=== PATIENT | female | born 1985 ===

== ENCOUNTER 2019-12-09 08:32 | Day surgery (SDC) | payer BC ==
[~2019-12-09 08:32] MED LIST: Acetaminophen TAB* 325 MG PO ONE; Buffered Lidocaine 1% SYRIN* 1 ML/SYRINGE INTRADERM ONE; Famotidine IV* 10 MG/ML 2 ML (20 mg) IV ONE; Lactated Ringers 1000 ML Bag* 1,000 ML IV SCH
[2019-12-09] MEDS ORDERED: Acetaminophen TAB* 325 MG ONE (08:35)
[2019-12-09] MEDS ORDERED: ceFAZolin 2 GM PREMIX in ORs 2 GM/50 ML BAG ONE (08:36)
[2019-12-09] MEDS ORDERED: Buffered Lidocaine 1% SYRIN* 1 ML/SYRINGE INTRADERM ONE (08:36)
[2019-12-09] MEDS ORDERED: Famotidine IV* 10 MG/ML 2 ML (20 mg) ONE (08:36)
[2019-12-09] MEDS ORDERED: fentaNYL* 50 MCG/ML 2 ML VIAL (100 MCG VIAL) ONE (09:18)
[2019-12-09] MEDS ORDERED: Midazolam* 1 MG/ML 5 ML VIAL (5 MG) ONE (09:18)
[2019-12-09] MEDS ORDERED: Lidocaine 2% PF * 5 ML VIAL ONE (09:37)
[2019-12-09] MEDS ORDERED: Propofol* 10 MG/ML 20 ML BTL ONE (09:38)
[2019-12-09] MEDS ORDERED: Ondansetron INJ* 2 MG/ML VIAL ONE ×2 (09:38→11:23)
[2019-12-09] MEDS ORDERED: Ondansetron INJ* 2 MG/ML VIAL IV PRN (09:45)
[2019-12-09] MEDS ORDERED: HYDROcodone/ACETAMIN 5-325 MG* 1 TAB PO PRN (09:45)
[2019-12-09] MEDS ORDERED: fentaNYL* 50 MCG/ML 2 ML VIAL (100 MCG VIAL) IV PRN (09:45)
[2019-12-09] MEDS ORDERED: Naloxone* 0.4 MG/ML 1 ML VIAL IV PRN (09:45)
[2019-12-09] MEDS ORDERED: DiMENhydriNATE IV* 50 MG/ML VIAL IV PUSH PRN (09:45)
--- NOTE | 2019-12-09 10:24 | OP ---
Operative Report - Blank - Operative Report Date of Operation: 12/09/19 Note: OPERATIVE REPORT Pre-op: Right breast cancer Post-Op: Same Procedure:Insertion of left chest wall 8F Powerport Surgeon: MD Anitha Asst: none Anes: Local MAC IVF:min EBL:min Specimen: none Drain: none Wound: 1 Findings: Above To PACU
[2019-12-09] MEDS ORDERED: HYDROcodone/ACETAMIN 5-325 MG* 1 TAB ONE (10:57)
[2019-12-09] MEDS ORDERED: DiMENhydriNATE IV* 50 MG/ML VIAL ONE (11:32)
[2019-12-09 12:20] VITALS: BP 116/71
--- NOTE | 2019-12-09 13:59 | OP ---
CC: [facility]; Dr. Karoline Siegel OPERATIVE REPORT: DATE OF OPERATION: 12/09/19 DATE OF : 81 SURGEON: Danial Welsh MD VARNISH FINISHER: None. ANESTHESIOLOGIST: Dr. Latham. ANESTHESIA: Local with monitored anesthesia care. PRE-OP DIAGNOSIS: Right-sided breast cancer. POST-OP DIAGNOSIS: Right-sided breast cancer. OPERATIVE PROCEDURE: Insertion of a left chest wall 8-Turkish PowerPort. ESTIMATED BLOOD LOSS: Minimal. IV FLUIDS: Minimal. SPECIMENS: None. WOUND CLASSIFICATION: I. COMPLICATIONS: None. DRAINS: None. FINDINGS: As above. DESCRIPTION OF PROCEDURE: Written informed consent was obtained, the left chest was marked with inde lible ink, and preoperative antibiotics were administered. The patient was taken to the operating ro om, placed in the supine position. Sequential compression devices were applied. The left and right chest and neck were prepped and draped in the usual sterile fashion. Time-out verification was completed. The patient was placed in Trendelenburg position and 1% lidocaine with epinephrine was used to infilt rate the anterior chest in the left inferior to mid clavicular area, and using an 18-gauge Cook needl e, the subclavian vein was punctured. This was on the third pass underneath the clavicle with good b lood return, and the guidewire was inserted without difficulty. The guidewire was confirmed to be in the superior vena cava on fluoroscopy. Next, additional marking was infiltrated inferior to the puncture site and a transverse incision was made and a subcutaneous pocket was made inferiorly to the incision large enough to fit the port. The catheter itself was then tunneled from the pocket site to the puncture site, and using the sheath , dilator, and peel-away system, the catheter was inserted into the central venous system at the junc tion between the superior vena cava and the right atrium. The catheter at the skin level was then cut to the appropriate length and attached to the port in the usual fashion, which was then placed in the pocket. There was good blood return noted and the catheter was then flushed easily and subsequently with the heparin solution. The port was secured to the subcutaneous tissue with 2 separate 2-0 Prolene sutures. Hemostasis was assured. The incisions were closed with running 3-0 and 4- 0 Vicryl sutures. Steri-Strips and a yoni rile occlusive dressing were applied. The patient tolerated the procedure well and was taken to the recovery room stable condition. Postprocedural chest x-ray showed the catheter to be in good position without evidence of pneumothora x. [id number]/[facility] #: [id number]
== END 2019-12-09 12:19 | disposition home or self-care (01) ==
LOC: OR 08:32
PROVIDERS: ATTEND Surgery
DX: C50.911 Malignant neoplasm of unspecified site of right female breast (principal); C77.3 Secondary and unspecified malignant neoplasm of axilla and upper limb lymph nodes; Z87.891 Personal history of nicotine dependence
CPT/HCPCS: 71045; 76000; 81025; A9270-GY; C1788; J0690; J1240; J2250; J2405; J2704; J3010

== ENCOUNTER 2020-05-17 05:42 | Inpatient (IN) ==
[2020-05-17] MEDS ORDERED: Famotidine IV 10 MG/ML 2 ml VIAL (20 mg) IV ONE (06:00)
[2020-05-17] MEDS ORDERED: Buffered Lidocaine 1% SYRIN 1 ml INTRADERM ONE ×2 (06:00→06:19)
[2020-05-17] MEDS ORDERED: Lactated Ringers 1000 ml BAG 1,000 ML IV SCH (06:00)
[2020-05-17] MEDS ORDERED: Ondansetron 4 mg VIAL 2 MG/ML 2 ml VIAL ONE ×2 (06:18→07:17)
[2020-05-17] MEDS ORDERED: Dexamethasone IV 4 MG/ML VIAL 1 ml VIAL ONE (06:18)
[2020-05-17] MEDS ORDERED: ceFAZolin 2 GM PREMIX 2 GM/50 ML BAG ONE (06:19)
[2020-05-17] MEDS ORDERED: Famotidine IV 10 MG/ML 2 ml VIAL (20 mg) ONE (06:19)
[2020-05-17] MEDS ORDERED: Gentamicin ADULT 40 MG/ML VIAL (2 ML VIAL = 80 MG) ONE (07:14)
[2020-05-17] MEDS ORDERED: Povidone Iodine 5% OPTH 30 ML BTL ONE ×2 (07:15→08:40)
[2020-05-17] MEDS ORDERED: Bacitracin INJECTION 50,000 UNITS ONE (07:15)
[2020-05-17] MEDS ORDERED: ceFAZolin VIAL VIAL ONE ×3 (07:15→13:14)
[2020-05-17] MEDS ORDERED: fentaNYL 250 mcg/5 ml 50 MCG/ML 5 ml VIAL (250 MCG) ONE (07:17)
[2020-05-17] MEDS ORDERED: Midazolam 2 mg/2 ml VIAL 1 mg/ml 2 ml VIAL (2 mg) ONE ×2 (07:17→08:01)
[2020-05-17] MEDS ORDERED: Acetaminophen IV 1 GM/100ML 100 ML ONE (07:17)
[2020-05-17] MEDS ORDERED: Rocuronium 50 mg VIAL 10 mg/ml 5 ml VIAL (50 mg) ONE (07:17)
[2020-05-17] MEDS ORDERED: Propofol 10 MG/ML 20 ML BTL ONE (07:17)
[2020-05-17] MEDS ORDERED: Lidocaine 2% PF 5 ML VIAL ONE (07:17)
[2020-05-17] MEDS ORDERED: Bupivacaine 0.25% SDV 30 ML ONE (07:52)
[2020-05-17] MEDS ORDERED: HYDROmorphone 1 MG/1 ML SYRINGE ONE (11:27)
[2020-05-17] MEDS ORDERED: Lactated Ringers 1000 ml BAG 1,000 ML IV ONE (12:18)
[2020-05-17] MEDS ORDERED: HYDROcodone/ACETAMIN 5/325 mg TAB PO PRN (12:19)
[2020-05-17] MEDS ORDERED: HYDROmorphone 0.5 MG/0.5 ML SYRINGE IV SLOW PU PRN (12:21)
[2020-05-17] MEDS ORDERED: Ondansetron 4 mg VIAL 2 MG/ML 2 ml VIAL IV PRN ×2 (12:22→13:42)
[2020-05-17] MEDS ORDERED: HYDROmorphone 1 MG/1 ML SYRINGE IV PRN (13:42)
[2020-05-17] MEDS ORDERED: fentaNYL 100 mcg/2 ml 50 MCG/ML VIAL IV PRN (13:42)
[2020-05-17] MEDS ORDERED: DiMENhydriNATE IV 50 mg/ml 1 ml VIAL IV PUSH PRN (13:42)
[2020-05-17] MEDS ORDERED: Naloxone 0.4 mg VIAL 0.4 mg/ml 1 ml VIAL IV PRN (13:42)
[2020-05-17] MEDS: HYDROcodone/ACETAMIN 5/325 mg TAB PO PRN ×2 (15:03→20:53)
[2020-05-17] MEDS: ceFAZolin 2 GM PREMIX 2 GM/50 ML BAG IVPB SCH (16:35)
[2020-05-17] MEDS: Heparin 5000 UNITS/ML 1 mL VIAL SUBCUT SCH (21:00)
[2020-05-18] MEDS: ceFAZolin 2 GM PREMIX 2 GM/50 ML BAG IVPB SCH ×2 (00:08→07:33)
[2020-05-18] MEDS: HYDROcodone/ACETAMIN 5/325 mg TAB PO PRN ×2 (03:51→08:19)
[2020-05-18] MEDS: Heparin 5000 UNITS/ML 1 mL VIAL SUBCUT SCH (06:07)
[2020-05-18 08:24] VITALS: BP 112/69
== END 2020-05-18 11:00 | disposition home or self-care (01) | DRG 362 ==
LOC: AA 05:42 → SSU 14:53
PROVIDERS: ADMIT Plastic Surgery; ATTEND Plastic Surgery